=== PATIENT | male | born 1990 | race Caucasian/White ===

== ENCOUNTER 2017-05-02 17:21 | Emergency (ER) | payer SELFPAY ==
[~2017-05-02] VITALS: Ht 175.3 cm; Wt 78.9 kg
[2017-05-02 20:02] VITALS: BP 144/79
== END 2017-05-02 20:02 | disposition home or self-care (01) ==
LOC: ED 17:21
DX: L25.9 Unspecified contact dermatitis, unspecified cause (principal)
CPT/HCPCS: J1100; J1200